=== PATIENT | female | born 1955 | race African-American/Black ===

== ENCOUNTER 2019-06-23 12:39 | Emergency (ER) | payer MEDICAID ==
[~2019-06-23] VITALS: Ht 167.6 cm; Wt 72.6 kg
[2019-06-23] MEDS ORDERED: ONDANSETRON PF 4 MG/2 ML VIAL. IV ONE (13:15)
[2019-06-23] MEDS ORDERED: IV NORMAL SALINE 1000ML BAG 1,000 ML IV ONE (13:15)
[2019-06-23] MEDS ORDERED: MORPHINE SULFATE 4 MG/ML VIAL. IV ONE (13:15)
--- NOTE | 2019-06-23 13:20 | PHYS DOC ---
Past Medical History Past Medical History: No Pertinent History Past Surgical History: Cholecystectomy Alcohol Use: None Drug Use: None Adult General Chief Complaint Chief Complaint: OTHER COMPLAINTS HPI HPI Patient is a 63 year old female that presents with dysuria and right flank pain has been ongoing for several days. The patient's history diabetes. Patient rates her pain as 10 out of 10 in severity. Review of Systems Review of Systems Constitutional: Denies fever or chills [] Eyes: Denies change in visual acuity, redness, or eye pain [] HENT: Denies nasal congestion or sore throat [] Respiratory: Denies cough or shortness of breath [] Cardiovascular: No additional information not addressed in HPI [] GI: Reports flank pain, nausea, Denies vomiting, bloody stools or diarrhea [] : Reports dysuria. Musculoskeletal: Denies back pain or joint pain [] Integument: Denies rash or skin lesions [] Neurologic: Denies headache, focal weakness or sensory changes [] Endocrine: Denies polyuria or polydipsia [] Complete systems were reviewed and found to be within normal limits, except as documented in this note. Current Medications Current Medications Current Medications Medications (Trade) Dose Ordered Sig/Cody Start Time Stop Time Status Last Admin Dose Admin Ibuprofen (Motrin) 400 mg 1X ONCE 06/23/19 15:15 06/23/19 15:16 DC Ketorolac Tromethamine (Toradol 15mg Vial) 10 mg 1X STAT 06/23/19 15:32 06/23/19 15:36 DC 06/23/19 15:32 10 MG Ketorolac Tromethamine (Toradol 30mg Vial) 30 mg STK-MED ONCE 06/23/19 15:34 06/23/19 15:34 DC Morphine Sulfate (Morphine Sulfate) 4 mg 1X ONCE 06/23/19 13:15 06/23/19 13:21 DC Ondansetron HCl (Zofran) 4 mg 1X ONCE 06/23/19 13:15 06/23/19 13:22 DC 06/23/19 15:37 4 MG Sodium Chloride 1,000 ml @ 1,000 mls/hr 1X ONCE 06/23/19 13:15 06/23/19 14:14 DC 06/23/19 15:36 1,000 MLS/HR Allergies Allergies Allergies Coded Allergies Type Severity Reaction Last Updated Verified Penicillins Allergy Severe Anaphylaxis 05/07/14 Yes Sulfa (Sulfonamide Antibiotics) Allergy Unknown Shortness of Air 06/23/19 Yes diphenhydramine Allergy Unknown Shortness of Air 06/23/19 Yes erythromycin base Allergy Unknown Shortness of Air 06/23/19 Yes sulfamethoxazole Allergy Unknown Shortness of Air 06/23/19 Yes trimethoprim Allergy Unknown Shortness of Air 06/23/19 Yes Physical Exam Physical Exam Constitutional: Well developed, well nourished, no acute distress, non-toxic appearance. [] HENT: Normocephalic, atraumatic, bilateral external ears normal, oropharynx moist, no oral exudates, nose normal. [] Eyes: PERRLA, EOMI, conjunctiva normal, no discharge. [] Neck: Normal range of motion, no tenderness, supple, no stridor. [] Cardiovascular:Heart rate regular rhythm, no murmur [] Lungs & Thorax: Bilateral breath sounds clear to auscultation [] Abdomen: Bowel sounds normal, soft, no tenderness, no masses, no pulsatile masses. [] Skin: Warm, dry, no erythema, no rash. [] Back: No tenderness, Has R CVA tenderness. [] Extremities: No tenderness, no cyanosis, no clubbing, ROM intact, no edema. [] Neurologic: Alert and oriented X 3, normal motor function, normal sensory function, no focal deficits noted. [] Psychologic: Affect normal, judgement normal, mood normal. [] Current Patient Data Vital Signs Vital Signs Date Time Temp Pulse Resp B/P (MAP) Pulse Ox O2 Delivery O2 Flow Rate FiO2 06/23/19 13:15 Room Air 06/23/19 13:12 97.4 76 16 129/78 (95) 92 97.4 Lab Values Laboratory Tests Test 06/23/19 13:14 06/23/19 14:58 06/23/19 15:30 06/23/19 15:55 Urine Collection Type Unknown Urine Color Yellow Urine Clarity Clear Urine pH 7.0 Urine Specific Ulen 1.025 Urine Protein Negative mg/dL (NEG-TRACE) Urine Glucose (UA) 100 mg/dL (NEG) Urine Ketones (Stick) Negative mg/dL (NEG) Urine Blood Negative (NEG) Urine Nitrite Negative (NEG) Urine Bilirubin Negative (NEG) Urine Urobilinogen Dipstick 0.2 mg/dL (0.2 mg/dL) Urine Leukocyte Esterase Small (NEG) Urine RBC 1-2 /HPF (0-2) Urine WBC 11-20 /HPF (0-4) Urine Squamous Epithelial Cells Many /LPF Urine Bacteria Moderate /HPF (0-FEW) Urine Mucus Marked /LPF Glucose (Fingerstick) 214 mg/dL (70-99) H White Blood Count 8.5 x10^3/uL (4.0-11.0) Red Blood Count 4.85 x10^6/uL (3.50-5.40) Hemoglobin 13.8 g/dL (12.0-15.5) Hematocrit 42.1 % (36.0-47.0) Mean Corpuscular Volume 87 fL (79-100) Mean Corpuscular Hemoglobin 28 pg (25-35) Mean Corpuscular Hemoglobin Concent 33 g/dL (31-37) Red Cell Distribution Width 13.4 % (11.5-14.5) Platelet Count 307 x10^3/uL (140-400) Neutrophils (%) (Auto) 42 % (31-73) Lymphocytes (%) (Auto) 48 % (24-48) Monocytes (%) (Auto) 6 % (0-9) Eosinophils (%) (Auto) 3 % (0-3) Basophils (%) (Auto) 1 % (0-3) Neutrophils # (Auto) 3.5 x10^3/uL (1.8-7.7) Lymphocytes # (Auto) 4.1 x10^3/uL (1.0-4.8) Monocytes # (Auto) 0.5 x10^3/uL (0.0-1.1) Eosinophils # (Auto) 0.3 x10^3/uL (0.0-0.7) Basophils # (Auto) 0.1 x10^3/uL (0.0-0.2) Lactic Acid Level 1.3 mmol/L (0.4-2.0) Sodium Level 140 mmol/L (136-145) Potassium Level 4.2 mmol/L (3.5-5.1) Chloride Level 104 mmol/L (98-107) Carbon Dioxide Level 27 mmol/L (21-32) Anion Gap 9 (6-14) Blood Urea Nitrogen 11 mg/dL (7-20) Creatinine 0.7 mg/dL (0.6-1.0) Estimated GFR (Cockcroft-Gault) 102.6 BUN/Creatinine Ratio 16 (6-20) Glucose Level 222 mg/dL (70-99) H Calcium Level 8.7 mg/dL (8.5-10.1) Total Bilirubin 0.7 mg/dL (0.2-1.0) Aspartate Amino Transferase (AST) 11 U/L (15-37) L Alanine Aminotransferase (ALT) 19 U/L (14-59) Alkaline Phosphatase 66 U/L (46-116) Total Protein 7.8 g/dL (6.4-8.2) Albumin 3.7 g/dL (3.4-5.0) Albumin/Globulin Ratio 0.9 (1.0-1.7) L Laboratory Tests 06/23/19 15:30 Laboratory Tests 06/23/19 15:55 EKG EKG [] Radiology/Procedures Radiology/Procedures [] Course & Med Decision Making Course & Med Decision Making Pertinent Labs and Imaging studies reviewed. (See chart for details) Will get CT, labs, urine. Also give supportive care. Patient is refusing to allow nursing staff to run the necessary tests to look at her urinary tract infection. The patient has small leukocytes in her urine. She is refusing the morphine that I gave her for pain stating that we are trying to sedate her and her hold her down, which is not the case. We'll give her ibuprofen. Patient is not willing to stay anymore and states she does want antibiotic and ibuprofen. Discussed with patient and she agreed to stay. Will send home on Keflex. Labs a re unremarkable with exception of leukocytes in urine. Dragon Disclaimer Dragon Disclaimer This electronic medical record was generated, in whole or in part, using a voice recognition dictation system. Departure Departure Impression: Primary Impression: Urinary tract infection Disposition: HOME, SELF-CARE Condition: STABLE Referrals: NO PCP (PCP) Patient Instructions: Urinary Tract Infection Additional Instructions: Thank you for visiting [facility]. We appreciate you trusting us with your care. If any additional problems come up don't hesitate to return to visit us. Please follow up with your primary care provider so they can plan additional care if needed and know about the problem that you had. If symptoms worsen come back to the Emergency Department. Any concerning symptoms that start such as chest pain, shortness of air, weakness or numbness on one side of the body, running high fevers or any other concerning symptoms return to the ER. You have been prescribed an antibiotic today to help fight your infection. Please take all of the antibiotic as directed. If after 48 hours the infection is not improving, please return for more care. If the infection worsens, return to ER for additional care. Scripts Cephalexin (KEFLEX) 500 Mg Capsule 1 CAP PO BID for 7 Days, #14 CAP 0 Refills Prov: LORA MCRAE APRN 06/23/19 Problem Qualifiers Primary Impression: Urinary tract infection Urinary tract infection type: acute cystitis Hematuria presence: without hematuria Qualified Codes: N30.00 - Acute cystitis without hematuria LORA MCRAE APRN Jun 23, 2019 13:20
[2019-06-23 13:28] LABS: BILIRUBIN,URINE NEGATIVE (NEG); CLARITY,URINE CLEAR; COLOR,URINE YELLOW; NITRITE,URINE NEGATIVE (NEG); PROTEIN,URINE NEGATIVE (NEG-TRACE); UROBILINOGEN,URINE 0.2 mg/dL (0.2 mg/dL)
[2019-06-23 13:52] LABS: SQUAMOUS EPITHELIAL CELL,UR MANY /LPF
[2019-06-23 13:53] LABS: BACTERIA,URINE MODERATE /HPF (0-FEW)
--- NOTE | 2019-06-23 14:22 | RAD ---
Study: CT abdomen and pelvis without contrast Indication: Flank pain. Comparison: None. Technique: Helical CT imaging performed of the abdomen and pelvis without the use of intravenous contrast. Sagittal and coronal reformats were obtained. One or more of the following individualized dose reduction techniques were utilized for this examination: 1. Automated exposure control 2. Adjustment of the mA and/or kV according to patient size 3. Use of iterative reconstruction technique. Findings: Punctate left lower lobe nodule approaching the diaphragm, image 15 series 3, measuring 2 mm. This nodule does not meet size criteria for dedicated follow-up. Unremarkable liver, pancreas, spleen, adrenal glands and stomach. The gallbladder is surgically absent. Punctate adjacent foci of mineralization at the lower pole the right kidney, images 94 and 95, series 3, could represent tiny nonobstructing intrarenal stones though these could also represent vascular calcifications. No hydroureteronephrosis bilaterally. No calculus seen within the urinary bladder to suggest a recently passed stone. A punctate focus of mineralization at the midline below the pubic symphysis, image 56 series 6, is felt to be too cephalad in location to represent a calculus within the urethra. Unremarkable uterus and adnexa. Unremarkable colon, appendix and small bowel. Mild aortobiiliac calcific atherosclerosis. Scattered pelvic phleboliths. No free fluid or air. Multilevel facet degeneration becoming most pronounced at the lower lumbar spine. This results in bony neural foraminal encroachment that is most pronounced on the right at L5-S1. The central canal is narrowed to at least moderate severity at L3-L4 and L4-L5. Impression: 1. No hydroureteronephrosis bilaterally nor nephrolithiasis seen along the course of either ureter or within the urinary bladder. Tiny foci of mineralization at the inferior pole the right kidney could represent nonobstructing intrarenal stones or vascular calcifications. Collectively, no acute abnormality seen throughout the abdomen or pelvis to account for the patient's symptoms. 2. Note is made of lower lumbar spine degenerative changes and there is at least moderate central canal stenosis at L3-L4 and L4-L5 as well as bony neural foraminal encroachment most pronounced on the right at L5-S1. Electronically signed by: DAVID MOTLEY MD (06/23/2019 2:19 PM) [id number]
[2019-06-23] MEDS ORDERED: CEPH-264 PO (14:59)
[2019-06-23] MEDS ORDERED: IBUPROFEN 400 MG TABLET. PO ONE (15:15)
[2019-06-23] MEDS ORDERED: KETOROLAC 15 MG/ML VIAL. IV STA (15:32)
[2019-06-23] MEDS ORDERED: KETOROLAC 30 MG/ML VIAL. ONE (15:34)
[2019-06-23 15:39] LABS: BASO # 0.1 x10^3/uL (0.0-0.2); BASO % 1 % (0-3); EOS # 0.3 x10^3/uL (0.0-0.7); EOS % 3 % (0-3); HEMATOCRIT 42.1 % (36.0-47.0); HEMOGLOBIN 13.8 g/dL (12.0-15.5); LYMPH # 4.1 x10^3/uL (1.0-4.8); LYMPH % 48 % (24-48); MEAN CORPUSCULAR HEMOGLOBIN 28 pg (25-35); MEAN CORPUSCULAR HGB CONC 33 g/dL (31-37); MEAN CORPUSCULAR VOLUME 87 fL (79-100); MONO # 0.5 x10^3/uL (0.0-1.1); MONO % 6 % (0-9); NEUT # 3.5 x10^3/uL (1.8-7.7); NEUT % 42 % (31-73); PLATELET COUNT 307 x10^3/uL (140-400); RED BLOOD COUNT 4.85 x10^6/uL (3.50-5.40); RED CELL DISTRIBUTION WIDTH 13.4 % (11.5-14.5); WHITE BLOOD COUNT 8.5 x10^3/uL (4.0-11.0)
[2019-06-23 16:16] LABS: CALCIUM 8.7 mg/dL (8.5-10.1); CREATININE 0.7 mg/dL (0.6-1.0); GFR 102.6; POTASSIUM 4.2 mmol/L (3.5-5.1)
[2019-06-23 16:21] LABS: ALBUMIN 3.7 g/dL (3.4-5.0); ALBUMIN/GLOBULIN RATIO 0.9 (1.0-1.7); TOTAL BILIRUBIN 0.7 mg/dL (0.2-1.0); TOTAL PROTEIN 7.8 g/dL (6.4-8.2)
[2019-06-23 17:05] VITALS: BP 142/77
== END 2019-06-23 17:33 | disposition home or self-care (01) ==
LOC: ER 12:39
DX: N30.00 Acute cystitis without hematuria (principal); Z90.49 Acquired absence of other specified parts of digestive tract; R11.0 Nausea; E11.9 Type 2 diabetes mellitus without complications; Z88.0 Allergy status to penicillin; Z88.2 Allergy status to sulfonamides; Z88.1 Allergy status to other antibiotic agents; Z88.8 Allergy status to other drugs, medicaments and biological substances
CPT/HCPCS: 36415; 74176; 80053; 81001; 82962; 83605; 85025; 87086; 96374; 96375; 99285; J1885; J2405; J7030